=== PATIENT | female | born 1950 | race African-American/Black ===

== ENCOUNTER 2016-05-19 09:43 | Emergency (ER) | payer MEDICARE, MEDICAID ==
[~2016-05-19] VITALS: Ht 170.2 cm; Wt 93.0 kg
[~2016-05-19 09:43] MED LIST: AMLODIPINE BESYL5 MG ORAL; ANTI-ITCH28 GM TOPIC; AZITHROMYCIN250 MG ORAL; BENADRYL25 M3 PO; COSOPT1 DROP BOTH EYES; FLONASE1 SPRAYS; HYDROCHLOROTHIA25 MG ORAL; IBUPROFEN200 MG ORAL; IBUPROFEN600 MG ORAL; IBUPROFEN800 MG PO; KEFLEX500 MG ORAL; LISINOPRIL20 MG ORAL; LUMIGAN2.5 ML BOTH EYES; MACROBID100 MG ORAL; NITROFURANTOIN100 M2 ORAL; NORVASC5 MG PO; OMNIPRED10 ML OP; PHENAZOPYRIDIN200 MG ORAL; PROAIR HFA8.5 GM INH; SALINE NASAL SP45 ML NS; TRAMADOL HCL50 MG ORAL; TRUSOPT10 ML BOTH EYES; TYLENOL/CODEI12.5 ML PO; TYLENOL325 MG ORAL; VICODIN 5-5001 EACH PO; ZESTRIL20 MG PO
[2016-05-19 10:09] VITALS: BP 143/73
[2016-05-19] MEDS ORDERED: TRAMADOL HCL50 MG ORAL (10:58)
[2016-05-19] MEDS ORDERED: TYLENOL EXTRA500 MG ORAL (10:58)
[2016-05-19 11:16] VITALS: BP 140/76
[2016-05-19 11:17] VITALS: BP 140/76
--- NOTE | 2016-05-19 11:42 | Emergency Room Report ---
History of Present Illness General Chief Complaint: Pain Source: Patient Present Illness HPI 65-year-old female presents ED complaining of right knee pain x4 days. Denies any trauma. States she has been increasing her exercise recently and notices the pain at the end of her day. Pain is throbbing, 7/10, worse with walking and weightbearing. No other aggravating or relieving factors. Denies any other associated symptoms Allergies: Coded Allergies: No Known Allergies (Unverified , 04/06/12) Patient History Past Medical History: HTN Past Surgical History: none Pertinent Family History: none Social History: Denies: alcohol use, drug use, smoking Now: No Immunizations: UTD Reviewed Nursing Documentation: PMH: Agreed, PSxH: Agreed Nursing Documentation-PMH Past Medical History: No History, Except For Hx Hypertension: Yes Hx Neurological Problems: Yes - glaucoma Review of Systems All Other Systems: negative except mentioned in HPI Physical Exam Vital Signs Date Time Temp Pulse Resp B/P Pulse Ox O2 Delivery O2 Flow Rate FiO2 05/19/16 09:49 98.1 66 14 143/73 99 Room Air Sp02 EP Interpretation: reviewed, normal General Appearance: no apparent distress, alert, GCS 15, non-toxic Head: normocephalic, atraumatic Eyes: bilateral eye PERRL, bilateral eye normal inspection ENT: normal ENT inspection Neck: normal inspection Respiratory: normal inspection Cardiovascular #1: normal inspection Gastrointestinal: normal inspection Rectal: deferred Genitourinary: no CVA tenderness Musculoskeletal: tender - R knee. full ROM noted. no bruising/deformity Neurologic: alert, oriented x3, responsive, motor strength/tone normal, sensory intact, speech normal Psychiatric: normal inspection Skin: normal inspection Lymphatic: normal inspection Procedures Splinting Splinting : Consent: Verbal Pre-Made Type: MEGHAN wrap - R knee Pre-Proc Neuro Vasc Exam: normal Post-Proc Neuro Vasc Exam: normal Patient Tolerated: Well Complications: None Medical Decision Making Diagnostic Impression: Primary Impression: Knee pain Qualified Codes: M25.561 - Pain in right knee ER Course Hospital Course 65-year-old F presents to ED complaining of R knee pain Differential diagnoses include: Fracture, dislocation, sprain, contusion Clinical course Patient placed on stretcher. After initial history and physical, I ordered Xrays R knee Xrays read shows no acute fracture/dislocation. narrow joint spacing suggestive of DJD. Placed in meghan wrap Diagnosis - knee pain Stable and discharged to home with prescription for Tylenol/Tramadol Aapply ice , keep elevated. weight bear as tolerated. Followup with PMD. Return to ED if symptoms recur or worsen Other X-Ray Diagnostic Results Other X-Ray Diagnostic Results : X-Ray Ordered: R knee EP Interpretation: No Findings: no fractures, no dislocation, no soft tissue swelling Number of Views: 3 Last Vital Signs Date Time Temp Pulse Resp B/P Pulse Ox O2 Delivery O2 Flow Rate FiO2 05/19/16 11:17 98.1 78 16 140/76 100 Room Air Status: improved Disposition: HOME, SELF-CARE Condition: Stable Scripts Tramadol Hcl* (ULTRAM*) 50 Mg Tablet 50 MG ORAL Q6H Y for For Pain, #20 TAB 0 Refills Prov: DOLORES MATTHEWS M.D. 05/19/16 Acetaminophen* (TYLENOL EXTRA STRENGTH*) 500 Mg Tablet 500 MG ORAL Q8H Y for Prn Headache/Temp > 101, #30 TAB 0 Refills Prov: DOLORES MATTHEWS M.D. 05/19/16 Patient Instructions: Arthritis, Hriu-fm-Rtde DOLORES MATTHEWS M.D. May 19, 2016 11:42
--- NOTE | 2016-05-21 08:10 | Diagnostic Imaging Report ---
Indication: Right knee pain Technique: XRAY KNEE THREE VIEWS RIGHT Comparison: None Findings: There is no gross fracture or dislocation. There is degenerative spurring of the medial and patellofemoral compartments. There is patella morgan. There is suprapatellar fullness with a small joint effusion not excluded. There is osteopenia. Impression: No gross fracture or dislocation. Other findings as above.
== END 2016-05-19 11:19 | disposition home or self-care (01) ==
LOC: EMR 10:24
DX: M25.561 Pain in right knee (principal); I10 Essential (primary) hypertension; H40.9 Unspecified glaucoma
CPT/HCPCS: 29530; 99284

== ENCOUNTER 2016-12-25 17:20 | Emergency (ER) | payer MEDICARE, MEDICAID ==
[~2016-12-25] VITALS: Ht 170.2 cm; Wt 93.0 kg
[~2016-12-25 17:20] MED LIST changes: +TYLENOL EXTRA500 MG ORAL
[2016-12-25 18:50] LABS: APPEARANCE,URINE CLEAR; KETONES,URINE NEGATIVE (NEGATIVE); LEUKOCYTE ESTERASE ,URINE 1+ (NEGATIVE); NITRITE,URINE NEGATIVE (NEGATIVE); PH,URINE 7 (4.5-8.0); PROTEIN,URINE NEGATIVE (NEGATIVE); UROBILINOGEN,URINE NORMAL MG/DL (0.0-1.0)
[2016-12-25 18:58] LABS: AMORPHOUS SEDIMENT,UR FEW /LPF; BACTERIA,URINE FEW /HPF; MUCUS,URINE FEW /LPF (NONE/OCC); RBC,URINE 0-2 /HPF (0 - 2); SQUAMOUS EPITHELIAL CELL,UR FEW /LPF (NONE/OCC)
[2016-12-25 19:15] VITALS: BP 144/76
[2016-12-25] MEDS ORDERED: ACETAMINOPHEN-1 EAC1 ORAL (19:20)
[2016-12-25 20:00] VITALS: BP 138/70
--- NOTE | 2016-12-26 10:45 | Diagnostic Imaging Report ---
Indications:PAIN Technique: Three or 4 views of the left elbow Comparison: None Findings:No acute fracture. No dislocation. No joint effusion. Impression:Negative
--- NOTE | 2016-12-26 10:51 | Diagnostic Imaging Report ---
Indication: PAIN Technique: One view of the chest Comparison: 09/20/2015 Findings: The lungs and pleural spaces are clear. Heart size is normal. Aorta is tortuous and calcified. Upper mediastinum is unremarkable Impression: Negative
--- NOTE | 2016-12-28 13:20 | Emergency Room Report ---
History of Present Illness General Chief Complaint: Upper Extremity Injury Source: Patient Present Illness [facility] The patient is a 66-year-old female presenting for left elbow pain. She states that she was walking and tripped and fell onto the left elbow appears denies hitting head or loss of consciousness. This occurred last night. Pain is localized to the left elbow described as an 8/10 awake and is worse with touch. She denies any numbness or tingling. She also has mild left-sided rib pain. She has not taken any pain medications for this yet. She is also complaining of increased urinary frequency and urinary incontinence which has been increasing over the past month. She denies any dysuria, hematuria, or vaginal discharge. She denies any other symptoms including nausea, vomiting, fever, chills, dizziness, shortness of breath, chest pain, back pain Allergies: Coded Allergies: No Known Allergies (Unverified , 04/06/12) Patient History Past Medical History: see triage record Pertinent Family History: none Reviewed Nursing Documentation: PMH: Agreed, PSxH: Agreed Nursing Documentation-PMH Hx Hypertension: Yes Hx Neurological Problems: Yes - glaucoma Review of Systems All Other Systems: negative except mentioned in HPI Physical Exam Vital Signs Date Time Temp Pulse Resp B/P (MAP) Pulse Ox O2 Delivery O2 Flow Rate FiO2 12/25/16 17:22 98.4 78 16 144/76 99 Room Air Sp02 EP Interpretation: reviewed, normal General Appearance: no apparent distress, alert, GCS 15, non-toxic Head: normocephalic, atraumatic Eyes: bilateral eye normal inspection, bilateral eye PERRL ENT: hearing grossly normal, normal pharynx, no angioedema, normal voice Neck: full range of motion, supple/symm/no masses Respiratory: chest non-tender, lungs clear, normal breath sounds, speaking full sentences Gastrointestinal: normal bowel sounds, non tender, soft, non-distended, no guarding, no rebound Genitourinary: normal inspection, no CVA tenderness Musculoskeletal: back normal, gait/station normal, normal range of motion, swelling - L elbow, tender - L olecranon Neurologic: alert, oriented x3, responsive, motor strength/tone normal, sensory intact, speech normal Psychiatric: judgement/insight normal, memory normal, mood/affect normal, no suicidal/homicidal ideation Skin: normal color, no rash, warm/dry, well hydrated Lymphatic: no adenopathy Procedures Splinting Splinting : Consent: Verbal Location: L arm Pre-Made Type: sling Pre-Proc Neuro Vasc Exam: normal Post-Proc Neuro Vasc Exam: normal Patient Tolerated: Well Complications: None Medical Decision Making PA Attestation Dr. Slade is my supervising physician. Patient management was discussed with my supervising physician Diagnostic Impression: Primary Impression: Elbow fracture, left Qualified Codes: S42.402A - Unspecified fracture of lower end of left humerus , initial encounter for closed fracture Additional Impression: Urinary incontinence Qualified Codes: R32 - Unspecified urinary incontinence ER Course The patient is a 66-year-old female presenting for left elbow pain as well as urinary symptoms Ddx considered include but not limited to sprain/strain, fracture, contusion, bursitis, gout Differential diagnosis considered but not limited to: UTI, vaginitis, incontinence, among others PE: vitals WNL. NAD L elbow: FulL AROM. Edema noted at posterior elbow. TTP at olecranon. No skin changes. Lungs CTA bilat Abd is soft and non tender UA: no signs of infection Left rib series is unremarkable Left elbow x-rays show possible fracture due to some swelling and small opacity off of the olecranon. Left arm is placed in a sling. She will followup with her primary doctor for further evaluation and treatment. She is given prescription for pain medications. ER precautions given Labs Test 12/25/16 18:38 Urine Color Yellow Urine Appearance Clear Urine pH 7 (4.5-8.0) Urine Specific [place] 1.010 (1.005-1.035) Urine Protein Negative (NEGATIVE) Urine Glucose (UA) Negative (NEGATIVE) Urine Ketones Negative (NEGATIVE) Urine Occult Blood Negative (NEGATIVE) Urine Nitrite Negative (NEGATIVE) Urine Bilirubin Negative (NEGATIVE) Urine Urobilinogen Normal MG/DL (0.0-1.0) Urine Leukocyte Esterase 1+ (NEGATIVE) Urine RBC 0-2 /HPF (0 - 2) Urine WBC 2-4 /HPF (0 - 2) Urine Squamous Epithelial Cells Few /LPF (NONE/OCC) Urine Amorphous Sediment Few /LPF (NONE) Urine Bacteria Few /HPF (NONE) Urine Mucus Few /LPF (NONE/OCC) Lab Results Impression Unremarkable Other X-Ray Diagnostic Results Other X-Ray Diagnostic Results #1: X-Ray ordered: L elbow # of Views/Limited Vs Complete: 3 View Indication: Pain EP Interpretation: Yes Interpretation: no dislocation, other - some swelling is seen as well as small opacity off of the olecranon Impression: Other - possible fracture of olecranon Electronically Signed by: CHIOMA Phanibmikaela Text I have reviewed the xray with my supervising physician and interpretation is that there is likely a small fracture of the olecranon Other X-Ray Diagnostic Results #2: X-Ray ordered: L ribs # of Views/Limited Vs Complete: 4 View, Complete Indication: Pain EP Interpretation: Yes Interpretation: no dislocation, no soft tissue swelling, no fractures Impression: No acute disease Electronically Signed by: CHIOMA Phanibmikaela Text I have reviewed the xray with my supervising physician and interpretation is that there are no fractures, dislocations, pneumothorax, or soft tissue swelling. Last Vital Signs Date Time Temp Pulse Resp B/P (MAP) Pulse Ox O2 Delivery O2 Flow Rate FiO2 12/25/16 17:22 98.4 78 16 144/76 99 Room Air Status: improved Disposition: HOME, SELF-CARE Condition: Improved Scripts Acetaminophen With Codeine (T#3) (TYLENOL #3 TAB*) Y Tab 1 TAB ORAL Q6HR Y for For Pain, #10 TAB Prov: CELSO LESTER 12/25/16 Patient Instructions: Urinary Incontinence, Elbow Fracture, Simple Additional Instructions: I discussed my findings with the patient. All questions and concerns have been answered. Treatment and medication compliance have been addressed. I advised the patient that they need to follow up with primary doctor as soon as possible. Return to ED if symptoms worsen, new symptoms arise, or if needed for any reason. Patient verbalized understanding of discharge instructions. CELSO LESTER Dec 28, 2016 13:20
[2017-03-12] MEDS ORDERED: NORCO 5-325 TA1 EACH ORAL (11:30)
[2017-03-12] MEDS ORDERED: ROBAXIN-750750 MG PO (11:30)
== END 2016-12-25 20:00 | disposition home or self-care (01) ==
LOC: EMR 18:19
DX: S42.402A Unspecified fracture of lower end of left humerus, initial encounter for closed fracture (principal); W01.0XXA Fall on same level from slipping, tripping and stumbling without subsequent striking against object, initial encounter; Y93.9 Activity, unspecified; Y99.9 Unspecified external cause status; R32 Unspecified urinary incontinence; M25.522 Pain in left elbow; I10 Essential (primary) hypertension; H40.9 Unspecified glaucoma
CPT/HCPCS: 81003; 99284

== ENCOUNTER → 2017-03-12 | Emergency (ER) | payer MEDICARE, OTHER ==
[~2017-03-12] VITALS: Ht 170.2 cm; Wt 89.4 kg
[~2017-03-12] MED LIST changes: +ACETAMINOPHEN-1 EAC1 ORAL; +Methocarbamol 750mg tab ORAL ONE; +NORCO 5-325 TA1 EACH ORAL; +Norco 10mg/325mg tab ORAL ONE; +ROBAXIN-750750 MG PO
[2017-03-12 10:30] VITALS: BP 134/75
--- NOTE | 2017-03-12 11:54 | Diagnostic Imaging Report ---
Indications: hip pain Findings: Two views of the right hip were obtained. No acute fracture is demonstrated. Alignment of the hip is within normal limits. Soft tissues are unremarkable. Impression: Negative for acute injury.
--- NOTE | 2017-03-12 16:16 | Emergency Room Report ---
History of Present Illness General Chief Complaint: Pain Source: Patient Present Illness HPI 58-year-old female, presenting with right hip pain for 2 days, worse with walking, radiates down Buttocks. Has still been able to ambulate but with pain. Has not taken any pain medication. No numbness or tingling of extremities no urinary retention or incontinence no fever no chills Allergies: Coded Allergies: No Known Allergies (Unverified , 04/06/12) Patient History Past Medical History: see triage record Past Surgical History: none Pertinent Family History: none Reviewed Nursing Documentation: PMH: Agreed, PSxH: Agreed Nursing Documentation-PMH Hx Hypertension: Yes Hx Neurological Problems: Yes - glaucoma Review of Systems All Other Systems: negative except mentioned in HPI Physical Exam Vital Signs Date Time Temp Pulse Resp B/P (MAP) Pulse Ox O2 Delivery O2 Flow Rate FiO2 03/12/17 10:02 98.1 63 18 134/75 100 Room Air Sp02 EP Interpretation: reviewed, normal General Appearance: normal inspection, well appearing, no apparent distress, alert, GCS 15, non-toxic Head: normocephalic, atraumatic Eyes: bilateral eye normal inspection, bilateral eye PERRL, bilateral eye EOMI ENT: normal ENT inspection, normal pharynx, normal voice, moist mucus membranes Neck: normal inspection, full range of motion, supple Respiratory: normal inspection, lungs clear, normal breath sounds, no respiratory distress, no retraction, no wheezing, speaking full sentences, chest symmetrical Cardiovascular #1: normal inspection, regular rate, rhythm, no edema, normal capillary refill Cardiovascular #2: 2+ radial (R), 2+ radial (L) Gastrointestinal: normal inspection, non tender, soft, non-distended, no guarding Musculoskeletal: other - Sided lower lumbar paraspinal tenderness, no midline tenderness, full range of motion no exudates, able to ambulate Neurologic: normal inspection, alert, oriented x3, responsive, motor strength/ tone normal, sensory intact, normal gait, speech normal Psychiatric: normal inspection, judgement/insight normal, memory normal Skin: normal inspection, normal color, no rash, warm/dry, well hydrated, normal turgor Medical Decision Making Diagnostic Impression: Primary Impression: Musculoskeletal back pain ER Course 58-year-old female presents with back pain for 2 days DDX: Likely musculoskeletal back pain vs. muscular strain vs. sciatica Lumbar fracture is unlikely given patients age, no midline tenderness, no history of trauma, and that patient is ambulatory. Therefore, at this time no imaging is indicated Serious diagnoses such as cord compression, epidural abscess is unlikely in this patient given the clinical scenario and abscess of neurological symptoms or findings. Patient appears nontoxic. Plan: Robaxin X-ray ER course: Patient has remained nontoxic appearing and ambulatory in the ED. Pain improved w/ medications Right hip x-ray is unremarkable Disposition: Patient will be discharged to home with prescription of motrin and robaxin. Patient cautioned of the effects of robaxin including possible impairment of physical or mental abilities. Patient was instructed to refrain from operating machinery or driving. Patient is also cautioned on the GI effects of motrin and to take sparingly. Patient verbalized understanding. Strict precautions discussed with patient on when to emergently return to the ED which includes severe/worsening back pain, leg weakness/numbness, urinary retention/incontinence, fever or chills, which may indicate severe illness. Patient is to follow up with their PMD within 5 days. Patient agrees with plan. Please note that this Emergency Department Report was dictated using [employer] representative technology software, occasionally this can lead to erroneous entry secondary to interpretation by the dictation equipment. Xray: Right hip 3 view Complete Indication: Pain EP Interpretation: Yes Interpretation: No dislocation, no soft tissue swelling, no fractures Impression: No acute disease Electronically signed by Denise Mcelroy MD Last Vital Signs Date Time Temp Pulse Resp B/P (MAP) Pulse Ox O2 Delivery O2 Flow Rate FiO2 03/12/17 10:30 98.1 18 134/75 100 Room Air 03/12/17 10:02 63 Disposition: HOME, SELF-CARE Condition: Improved Scripts Methocarbamol* (ROBAXIN-750*) 750 Mg Tablet 750 MG PO TID, #21 TAB 0 Refills Prov: Deinse Mcelroy M.D. 03/12/17 Hydrocodone Bit/Acetaminophen 5-325* (NORCO 5-325*) 1 Each Tablet 1 TAB ORAL Q6H Y for For Pain, #10 TAB 0 Refills Prov: Denise Mcelroy M.D. 03/12/17 Patient Instructions: Back Pain, Adult, [id number] Denise Mcelroy M.D. Mar 12, 2017 16:16
== END | disposition home or self-care (01) ==
LOC: EMR 10:51
DX: M79.1 Myalgia (principal); M54.9 Dorsalgia, unspecified; M25.551 Pain in right hip; I10 Essential (primary) hypertension; H40.9 Unspecified glaucoma
CPT/HCPCS: 99284

== ENCOUNTER 2017-06-30 09:12 | Emergency (ER) | payer MEDICARE, OTHER ==
[~2017-06-30] VITALS: Ht 167.6 cm; Wt 86.2 kg
[~2017-06-30 09:12] MED LIST changes: -Methocarbamol 750mg tab ORAL ONE; -Norco 10mg/325mg tab ORAL ONE
--- NOTE | 2017-06-30 09:36 | Emergency Room Report ---
History of Present Illness General Chief Complaint: Lower Back Pain or Injury Source: Patient Present Illness HPI The patient presents with lower back pain and dysuria. She denies any fevers or chills. She's had this once before when she had a urinary tract infection. She denies any trauma. She's not taking medication at home. She states the pain is almost insignificant at the moment. At times the pain is 5/10 and aching in her lower back without radiation. No numbness, incontinence, oncologic problems, blood thinners, fevers. The patient was seen here in the past for right hip pain. X-rays were negative. She denies having any x-rays of her lower back. She was seen 10/2015 for lumbar strain - but this involved R side of her back. She denies fevers, chills, nausea, vomiting, diarrhea, cough, chest pain. She has decreased vision in her left eye that's chronic. Allergies: Coded Allergies: No Known Allergies (Unverified , 04/06/12) Patient History Past Medical History: see triage record Social History: Denies: smoking, alcohol use Social History Narrative she came from [facility] - Born in [facility] here with "mother" Reviewed Nursing Documentation: PMH: Agreed; PSxH: Agreed Nursing Documentation-PMH Hx Hypertension: Yes Hx Neurological Problems: Yes - glaucoma Review of Systems All Other Systems: negative except mentioned in HPI Physical Exam Vital Signs Date Time Temp Pulse Resp B/P (MAP) Pulse Ox O2 Delivery O2 Flow Rate FiO2 06/30/17 09:17 98.0 71 16 162/79 99 Room Air 98.1 Sp02 EP Interpretation: reviewed, normal General Appearance: well appearing, no apparent distress Head: normocephalic, atraumatic Eyes: left eye other - Corneal opacity ENT: hearing grossly normal, normal voice Neck: full range of motion, supple Respiratory: no respiratory distress, speaking full sentences Gastrointestinal: normal inspection, normal bowel sounds Genitourinary: no CVA tenderness Musculoskeletal: digits/nails normal, gait/station normal, normal range of motion, no calf tenderness, other - lumbar tenderness - not point tenderness - ROM good but with some discomfort - SLR negative bilat Neurologic: alert, normal gait, grossly normal Psychiatric: mood/affect normal Reflexes: 2+ knee (R), 2+ knee (L); 1+ ankle (R), 1+ ankle (L) Skin: no rash Medical Decision Making Diagnostic Impression: Primary Impression: Low back pain Qualified Codes: M54.5 - Low back pain Additional Impression: Osteoarthritis Qualified Codes: M47.817 - Spondylosis without myelopathy or radiculopathy, lumbosacral region ER Course Patient presents with back pain and dysuria. Differential includes pyelonephritis, UTI, back strain amongst others. Exam is most consistent with a UTI. Urinalysis is indicated. The patient will be treated with Tylenol (she is reluctant to take anything stronger). UA negative. This led to further evaluation with labs and lumbar spine x-rays. Labs unremarkable. Xrays with DJD spine with minimal spondylolisthesis. Improved with treatment. Patient stable for outpatient observation and treatment. Laboratory Tests Test 06/30/17 09:25 06/30/17 11:37 Urine Color Pale yellow Urine Appearance Clear Urine pH 8 (4.5-8.0) Urine Specific [place] 1.010 (1.005-1.035) Urine Protein Negative (NEGATIVE) Urine Glucose (UA) Negative (NEGATIVE) Urine Ketones Negative (NEGATIVE) Urine Occult Blood Negative (NEGATIVE) Urine Nitrite Negative (NEGATIVE) Urine Bilirubin Negative (NEGATIVE) Urine Urobilinogen Normal MG/DL (0.0-1.0) Urine Leukocyte Esterase Negative (NEGATIVE) Urine HCG, Qualitative Negative (NEGATIVE) White Blood Count 5.8 K/UL (4.8-10.8) Red Blood Count 4.59 M/UL (4.20-5.40) Hemoglobin 14.1 G/DL (12.0-16.0) Hematocrit 41.3 % (37.0-47.0) Mean Corpuscular Volume 90 FL (80-99) Mean Corpuscular Hemoglobin 30.8 PG (27.0-31.0) Mean Corpuscular Hemoglobin Concent 34.1 G/DL (32.0-36.0) Red Cell Distribution Width 11.9 % (11.6-14.8) Platelet Count 316 K/UL (150-450) Mean Platelet Volume 7.5 FL (6.5-10.1) Neutrophils (%) (Auto) 38.6 % (45.0-75.0) L Lymphocytes (%) (Auto) 50.1 % (20.0-45.0) H Monocytes (%) (Auto) 6.7 % (1.0-10.0) Eosinophils (%) (Auto) 3.3 % (0.0-3.0) H Basophils (%) (Auto) 1.4 % (0.0-2.0) Prothrombin Time 10.2 SEC (9.30-11.50) Prothrombin Time INR 1.0 (0.9-1.1) PTT 28 SEC (23-33) Sodium Level 139 MMOL/L (136-145) Potassium Level 4.0 MMOL/L (3.5-5.1) Chloride Level 102 MMOL/L (98-107) Carbon Dioxide Level 29 MMOL/L (21-32) Anion Gap 8 mmol/L (5-15) Blood Urea Nitrogen 7 mg/dL (7-18) Creatinine 0.5 MG/DL (0.55-1.30) L Estimate Glomerular Filtration Rate > 60 mL/min (>60) Glucose Level 85 MG/DL (74-106) Calcium Level 9.3 MG/DL (8.5-10.1) Total Bilirubin 0.6 MG/DL (0.2-1.0) Aspartate Amino Transferase (AST) 14 U/L (15-37) L Alanine Aminotransferase (ALT) 15 U/L (12-78) Alkaline Phosphatase 85 U/L (46-116) C-Reactive Protein, Quantitative < 0.4 mg/dL (0.00-0.90) Total Protein 8.0 G/DL (6.4-8.2) Albumin 3.8 G/DL (3.4-5.0) Globulin 4.2 g/dL Albumin/Globulin Ratio 0.9 (1.0-2.7) L Other X-Ray Diagnostic Results Other X-Ray Diagnostic Results : X-Ray ordered: spine # of Views/Limited Vs Complete: 3 View Indication: Pain Interpretation: no soft tissue swelling, no fractures, other - DJD, inflammation Impression: Other Electronically Signed by: Jurgen Hyde MD Last Vital Signs Date Time Temp Pulse Resp B/P (MAP) Pulse Ox O2 Delivery O2 Flow Rate FiO2 06/30/17 13:10 71 16 155/70 99 Room Air 06/30/17 13:10 97.9 208.2 Status: improved Disposition: HOME, SELF-CARE Condition: Improved Scripts Ibuprofen* (MOTRIN*) 600 Mg Tablet 600 MG ORAL Q6H PRN for For Pain, #20 TAB Prov: Jurgen Hyde M.D. 06/30/17 Acetaminophen (Tylenol) 325 Mg Tablet 650 MG ORAL Q6H PRN for Prn Pain/Headache/Temp > 101, #30 TAB 0 Refills Prov: Jurgen Hyde M.D. 06/30/17 Jurgen Hyde M.D. Jun 30, 2017 09:36
[2017-06-30 09:41] VITALS: BP 160/77
[2017-06-30 09:45] LABS: APPEARANCE,URINE CLEAR; BILIRUBIN, URINE NEGATIVE (NEGATIVE); COLOR,URINE PALE YELLOW; GLUCOSE, URINE (UA) NEGATIVE (NEGATIVE); KETONES,URINE NEGATIVE (NEGATIVE); LEUKOCYTE ESTERASE ,URINE NEGATIVE (NEGATIVE); NITRITE,URINE NEGATIVE (NEGATIVE); PH,URINE 8 (4.5-8.0); PROTEIN,URINE NEGATIVE (NEGATIVE); UROBILINOGEN,URINE NORMAL MG/DL (0.0-1.0)
[2017-06-30 12:01] LABS: BASOPHILS % (AUTO) 1.4 % (0.0-2.0); EOSINOPHILS % (AUTO) 3.3 % (0.0-3.0); HEMATOCRIT 41.3 % (37.0-47.0); HEMOGLOBIN 14.1 G/DL (12.0-16.0); LYMPHOCYTES % (AUTO) 50.1 % (20.0-45.0); MEAN CORPUSCULAR VOLUME 90 FL (80-99); MONOCYTES % (AUTO) 6.7 % (1.0-10.0); NEUTROPHILS % (AUTO) 38.6 % (45.0-75.0); PLATELET COUNT 316 K/UL (150-450); RED BLOOD COUNT 4.59 M/UL (4.20-5.40); RED CELL DISTRIBUTION WIDTH 11.9 % (11.6-14.8); WHITE BLOOD COUNT 5.8 K/UL (4.8-10.8)
[2017-06-30 12:02] LABS: ANION GAP 8 mmol/L (5-15); BLOOD UREA NITROGEN 7 mg/dL (7-18); CALCIUM 9.3 MG/DL (8.5-10.1); CARBON DIOXIDE 29 MMOL/L (21-32); CHLORIDE 102 MMOL/L (98-107); CREATININE 0.5 MG/DL (0.55-1.30); SODIUM 139 MMOL/L (136-145)
[2017-06-30 12:06] LABS: ALANINE AMINOTRANSFERASE 15 U/L (12-78); ALBUMIN 3.8 G/DL (3.4-5.0); ALBUMIN/GLOBULIN RATIO 0.9 (1.0-2.7); ALKALINE PHOSPHATASE 85 U/L (46-116); ASPARTATE AMINO TRANSFERASE 14 U/L (15-37); BILIRUBIN,TOTAL 0.6 MG/DL (0.2-1.0)
[2017-06-30] MEDS ORDERED: TYLENOL325 MG ORAL (13:04)
[2017-06-30] MEDS ORDERED: IBUPROFEN600 MG ORAL (13:04)
[2017-06-30 13:10] VITALS: BP_SYST 155; BP_SYST 160; BP_DIAS 70; BP_DIAS 77
--- NOTE | 2017-07-01 08:23 | Diagnostic Imaging Report ---
Indication: Pain Technique: 3 views of the lumbar spine Comparison: None Findings: Exam is limited by patient body habitus. No acute fractures. No dislocations. Vertebral body heights are preserved. Disc spaces are preserved. 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 There are degenerative changes of the lower lumbar facets. Impression: No acute process
== END 2017-06-30 13:10 | disposition home or self-care (01) ==
LOC: EMR 10:03
DX: M54.5 Low back pain (principal); M47.817 Spondylosis without myelopathy or radiculopathy, lumbosacral region; I10 Essential (primary) hypertension; H40.9 Unspecified glaucoma
CPT/HCPCS: 36415; 72020; 80053; 81003; 81025; 85025; 85610; 85730; 86140; 99284

== ENCOUNTER 2017-08-14 11:42 | Emergency (ER) | payer MEDICARE, OTHER ==
[~2017-08-14] VITALS: Ht 162.6 cm; Wt 90.3 kg
[2017-08-14 11:48] VITALS: BP 126/69
--- NOTE | 2017-08-14 14:10 | Diagnostic Imaging Report ---
Indication: Pain Findings: 3 views of the right shoulder were obtained. No acute fractures, malalignment, erosions or periostitis are identified. Soft tissues are unremarkable. Impression: Negative for acute injury
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
[2017-08-14] MEDS ORDERED: IBUPROFEN600 MG ORAL (14:13)
[2017-08-14] MEDS ORDERED: TRAMADOL HCL50 MG ORAL (14:13)
[2017-08-14 14:31] VITALS: BP 142/84
== END 2017-08-14 14:31 | disposition home or self-care (01) ==
LOC: EMR 12:44
DX: S40.011A Contusion of right shoulder, initial encounter (principal); S13.4XXA Sprain of ligaments of cervical spine, initial encounter; S39.012A Strain of muscle, fascia and tendon of lower back, initial encounter; V43.62XA Car passenger injured in collision with other type car in traffic accident, initial encounter; Y92.481 Parking lot as the place of occurrence of the external cause; I10 Essential (primary) hypertension; H40.9 Unspecified glaucoma
CPT/HCPCS: 99284

== ENCOUNTER 2017-10-07 16:23 | Emergency (ER) | payer MEDICARE ==
[~2017-10-07] VITALS: Ht 170.2 cm; Wt 86.2 kg
[2017-10-07 16:38] VITALS: BP 158/74
--- NOTE | 2017-10-07 16:44 | Emergency Room Report ---
History of Present Illness General Chief Complaint: Female Urogenital Problems Source: Patient, Medical Record Present Illness HPI 66-year-old female presents to the emergency department complaining of 10 out of 10 in severity dysuria with urinary frequency times one day. Patient denies fevers, chills, nausea, vomiting, hematuria, abdominal pain or tenderness. Patient also denies low back pain. Allergies: Coded Allergies: No Known Allergies (Unverified , 04/06/12) Patient History Past Medical History: see triage record Past Surgical History: none Pertinent Family History: none Now: No Immunizations: UTD Reviewed Nursing Documentation: PMH: Agreed; PSxH: Agreed Nursing Documentation-PMH Past Medical History: No History, Except For Hx Hypertension: Yes Hx Neurological Problems: Yes - glaucoma Review of Systems All Other Systems: negative except mentioned in HPI Physical Exam Vital Signs Date Time Temp Pulse Resp B/P (MAP) Pulse Ox O2 Delivery O2 Flow Rate FiO2 10/07/17 16:28 98.3 82 18 163/79 100 Room Air 98.2 Sp02 EP Interpretation: reviewed, normal General Appearance: no apparent distress, alert, GCS 15, non-toxic Head: normocephalic, atraumatic ENT: hearing grossly normal, normal voice Neck: full range of motion Respiratory: lungs clear, normal breath sounds, speaking full sentences Cardiovascular #1: regular rate, rhythm, no edema, systolic murmur Gastrointestinal: normal bowel sounds, non tender, soft, non-distended, no guarding Rectal: deferred Genitourinary: normal inspection, no CVA tenderness Musculoskeletal: back normal, gait/station normal, normal range of motion, non- tender Neurologic: alert, oriented x3, responsive, motor strength/tone normal, sensory intact, normal gait, speech normal, grossly normal Psychiatric: judgement/insight normal Skin: normal color, no rash, warm/dry, well hydrated Medical Decision Making PA Attestation Dr. Arango is my supervising physician whom pt. management has been discussed with. Diagnostic Impression: Primary Impression: UTI (urinary tract infection) Qualified Codes: N30.01 - Acute cystitis with hematuria Additional Impression: Dysuria ER Course 66-year-old female presents to the emergency department complaining of 10 out of 10 in severity dysuria with urinary frequency times one day. Patient denies fevers, chills, nausea, vomiting, hematuria, abdominal pain or tenderness. Patient also denies low back pain. Ddx considered but are not limited to UTi , Pyelo, STI, Stone, Cystitis Vital signs: are WNL, pt. is afebrile H&PE are most consistent with UTI ORDERS: - UA labs are attached: elevated leukocytes with hematuria will tx as UTI ED INTERVENTIONS: -Pyridium PO d/w pt. PCP follow up in 3-5 days or return to ED with worsening or new symptoms. DISCHARGE: At this time pt. is stable for d/c to home. Will provide printed patient care instructions, and any necessary prescriptions. Care plan and follow up instructions have been discussed with the patient prior to discharge. Labs Test 10/07/17 11:41 Urine Color Pale yellow Urine Appearance Clear Urine pH 7 (4.5-8.0) Urine Specific Joice 1.005 (1.005-1.035) Urine Protein 2+ (NEGATIVE) Urine Glucose (UA) Negative (NEGATIVE) Urine Ketones Negative (NEGATIVE) Urine Occult Blood 5+ (NEGATIVE) Urine Nitrite Negative (NEGATIVE) Urine Bilirubin Negative (NEGATIVE) Urine Urobilinogen Normal MG/DL (0.0-1.0) Urine Leukocyte Esterase 3+ (NEGATIVE) Urine RBC 5-10 /HPF (0 - 2) Urine WBC 2-4 /HPF (0 - 2) Urine Squamous Epithelial Cells Few /LPF (NONE/OCC) Urine Bacteria Few /HPF (NONE) Last Vital Signs Date Time Temp Pulse Resp B/P (MAP) Pulse Ox O2 Delivery O2 Flow Rate FiO2 10/07/17 16:28 98.3 82 18 163/79 100 Room Air 98.2 Disposition: HOME, SELF-CARE Condition: Stable Scripts Nitrofurantoin Monohyd/M-Cryst* (MACROBID 100 MG*) 100 Mg Capsule 100 MG ORAL EVERY 12 HOURS for 7 Days, #14 CAP Prov: Sofi Juarez 10/07/17 Phenazopyridine Hcl* (PYRIDIUM*) 200 Mg Tablet 200 MG ORAL THREE TIMES A DAY for 3 Days, #9 TAB 0 Refills Prov: Sofi Juarez 10/07/17 Patient Instructions: Urinary Tract Infection Additional Instructions: Take medications as directed. Follow up with a Primary Care Provider in 3-5 days, even if your symptoms have resolved. --Please review list of primary care clinics, if you do not already have a primary care provider Return sooner to ED if new symptoms occur, or current symptoms become worse. Do not drink alcohol, drive, or operate heavy machinery while taking [ ] as this may cause drowsiness. - Please note that this Emergency Department Report was dictated using [employer] throw[employer] technology software, occasionally this can lead to erroneous entry secondary to interpretation by the dictation equipment. Sofi Juarez Oct 07, 2017 16:44
[2017-10-07] MEDS ORDERED: Phenazopyridine 200mg tab ORAL ONE (16:45)
[2017-10-07 17:45] LABS: APPEARANCE,URINE CLEAR; BILIRUBIN, URINE NEGATIVE (NEGATIVE); COLOR,URINE PALE YELLOW; GLUCOSE, URINE (UA) NEGATIVE (NEGATIVE); KETONES,URINE NEGATIVE (NEGATIVE); LEUKOCYTE ESTERASE ,URINE 3+ (NEGATIVE); NITRITE,URINE NEGATIVE (NEGATIVE); PH,URINE 7 (4.5-8.0); PROTEIN,URINE 2+ (NEGATIVE); UROBILINOGEN,URINE NORMAL MG/DL (0.0-1.0)
[2017-10-07] MEDS ORDERED: NITROFURANTOIN100 M2 ORAL (17:55)
[2017-10-07] MEDS ORDERED: PHENAZOPYRIDIN200 MG ORAL (17:55)
[2017-10-07 18:01] VITALS: BP 154/74
== END 2017-10-07 18:09 | disposition home or self-care (01) ==
LOC: EMR 16:51
DX: N39.0 Urinary tract infection, site not specified (principal); I10 Essential (primary) hypertension; H40.9 Unspecified glaucoma
CPT/HCPCS: 81003; 99283

== ENCOUNTER 2019-02-23 16:56 | Inpatient (IN) | payer MEDICARE ==
[~2019-02-23] VITALS: Ht 162.6 cm; Wt 92.5 kg
[2019-02-23 17:15] VITALS: BP 158/88
[2019-02-23] MEDS ORDERED: Methocarbamol 750mg tab ORAL ONE (18:00)
--- NOTE | 2019-02-23 18:09 | Emergency Room Report ---
History of Present Illness General Chief Complaint: General Complaint Source: Patient Present Illness HPI Disclaimer: Please note that this report is being documented using [employer] technology. This can lead to erroneous entry secondary to incorrect interpretation by the dictating instrument. HPI: 68-year-old female with history of hypertension presents for evaluation of palpitations and back pain. The patient has chronic low back pain and was complaining of worsening pain today while she was cleaning her house. She states that this was rather vigorous activity for her and also during this time she felt her heart rate was going too fast. Sensation lasted approximately 10 minutes. She does not describe it exactly as pain just that it felt abnormal. She is now chest pain-free, no palpitations, no other changes in her health aside from worsening right-sided back pain. No pain radiating down her leg. She has never had a history of heart disease. No injury to the lower back. She did say that yesterday she felt her heart was skipping beats sometimes but again denied any pain. Does not smoke cigarettes. No history of heart disease. PMH: Hypertension PSH: Denies Allergies: Denies Social Hx: Denies alcohol, tobacco or drug use Allergies: Coded Allergies: No Known Allergies (Unverified , 04/06/12) Patient History Now: No Nursing Documentation-PMH Past Medical History: No History, Except For Hx Hypertension: Yes Hx Neurological Problems: Yes - glaucoma Review of Systems All Other Systems: negative except mentioned in HPI Physical Exam Vital Signs Date Time Temp Pulse Resp B/P (MAP) Pulse Ox O2 Delivery O2 Flow Rate FiO2 02/23/19 17:06 98.4 94 17 158/88 (111) 100 Room Air General: Awake and alert, no acute distress HEENT: NC/AT. EOMI. Neck: Supple, trachea midline Chest Wall: No tenderness, no deformity Cardiovascular: RRR. Soft systolic ejection murmur at the left sternal border Resp: Normal work of breathing. No cough, wheezing or crackles appreciated Abdomen: Abdomen is soft, nondistended. Nontender Skin: Intact. No abrasions, laceration or rash over the exposed skin MSK: Normal tone and bulk. Moving all extremities. No obvious deformity. Neuro: Awake and alert. Mentating appropriately. Back/Spine: No midline tenderness in the cervical, thoracic or lumbosacral spine. There is tenderness over the right paraspinal region in the lumbar spine but no midline tenderness Medical Decision Making Diagnostic Impression: Primary Impression: Elevated troponin Additional Impression: Palpitations ER Course 68-year-old female presents for evaluation of palpitations and back pain. Differential includes was not limited to anxiety, dehydration, overexertion, arrhythmia, ACS, lumbosacral strain. There was no injury reported. She is well -appearing now with stable vital signs. Will obtain EKG, chest x-ray, labs to rule out organic causes of palpitations. Do not see indication for acute imaging of the spine at this time as there is no midline tenderness and her symptoms are more consistent with a strain. Laboratory Tests Test 02/23/19 18:29 02/23/19 19:19 White Blood Count 9.5 K/UL (4.8-10.8) Red Blood Count 4.79 M/UL (4.20-5.40) Hemoglobin 14.2 G/DL (12.0-16.0) Hematocrit 41.0 % (37.0-47.0) Mean Corpuscular Volume 86 FL (80-99) Mean Corpuscular Hemoglobin 29.7 PG (27.0-31.0) Mean Corpuscular Hemoglobin Concent 34.7 G/DL (32.0-36.0) Red Cell Distribution Width 10.6 % (11.6-14.8) L Platelet Count 275 K/UL (150-450) Mean Platelet Volume 6.8 FL (6.5-10.1) Neutrophils (%) (Auto) 55.6 % (45.0-75.0) Lymphocytes (%) (Auto) 33.4 % (20.0-45.0) Monocytes (%) (Auto) 7.4 % (1.0-10.0) Eosinophils (%) (Auto) 1.5 % (0.0-3.0) Basophils (%) (Auto) 2.0 % (0.0-2.0) Sodium Level 139 MMOL/L (136-145) Potassium Level 4.2 MMOL/L (3.5-5.1) Chloride Level 104 MMOL/L (98-107) Carbon Dioxide Level 24 MMOL/L (21-32) Anion Gap 11 mmol/L (5-15) Blood Urea Nitrogen 10 mg/dL (7-18) Creatinine 0.6 MG/DL (0.55-1.30) Estimate Glomerular Filtration Rate > 60 mL/min (>60) Glucose Level 99 MG/DL (74-106) Calcium Level 9.4 MG/DL (8.5-10.1) Total Bilirubin 0.4 MG/DL (0.2-1.0) Aspartate Amino Transferase (AST) 17 U/L (15-37) Alanine Aminotransferase (ALT) 11 U/L (12-78) L Alkaline Phosphatase 83 U/L (46-116) Troponin I 0.077 ng/mL (0.000-0.056) Total Protein 7.9 G/DL (6.4-8.2) Albumin 3.5 G/DL (3.4-5.0) Globulin 4.4 g/dL Albumin/Globulin Ratio 0.8 (1.0-2.7) L EKG Diagnostic Results EKG Time: 18:08 Rate: normal Rhythm: NSR ST Segments: no acute changes Other Impression Sinus rhythm, slight left axis deviation, normal intervals, no ST segment changes. ASA given to the pt in ED: Yes Rhythm Strip Diag. Results Rhythm Strip Time: 18:08 EP Interpretation: yes Rate: 90s Rhythm: NSR, no PVC's, no ectopy Chest X-Ray Diagnostic Results Chest X-Ray Diagnostic Results : Chest X-Ray Ordered: Yes # of Views/Limited/Complete: 1 View Indication: Chest Pain EP Interpretation: Yes Interpretation: no consolidation, no effusion, no pneumothorax Impression: No acute disease Electronically Signed by: Electronically signed by Dr. Otf Stewart Reevaluation Time: 20:19 Last Vital Signs Date Time Temp Pulse Resp B/P (MAP) Pulse Ox O2 Delivery O2 Flow Rate FiO2 02/23/19 17:06 98.4 94 17 158/88 (111) 100 Room Air Reevaluation Impression EKG unremarkable aside from some left axis deviation. There is a Q wave in lead I and aVL of undetermined significance. The patient remains chest pain- free however troponin returned elevated at 0.077. Aspirin given. May have been demand ischemia from an arrhythmia earlier or ACS. The patient will be admitted for further evaluation of elevated troponin and palpitations. Disposition: ADMITTED INPATIENT Condition: Serious Otf Stewart MD Feb 23, 2019 18:09
[2019-02-23 18:51] LABS: EOSINOPHILS % (AUTO) 1.5 % (0.0-3.0); HEMOGLOBIN 14.2 G/DL (12.0-16.0); LYMPHOCYTES % (AUTO) 33.4 % (20.0-45.0); MEAN CORPUSCULAR VOLUME 86 FL (80-99); MONOCYTES % (AUTO) 7.4 % (1.0-10.0); NEUTROPHILS % (AUTO) 55.6 % (45.0-75.0); PLATELET COUNT 275 K/UL (150-450); RED BLOOD COUNT 4.79 M/UL (4.20-5.40); RED CELL DISTRIBUTION WIDTH 10.6 % (11.6-14.8); WHITE BLOOD COUNT 9.5 K/UL (4.8-10.8)
[2019-02-23 19:06] VITALS: BP 149/77
[2019-02-23 20:01] LABS: ANION GAP 11 mmol/L (5-15); BLOOD UREA NITROGEN 10 mg/dL (7-18); CALCIUM 9.4 MG/DL (8.5-10.1); CARBON DIOXIDE 24 MMOL/L (21-32); CHLORIDE 104 MMOL/L (98-107); CREATININE 0.6 MG/DL (0.55-1.30); POTASSIUM 4.2 MMOL/L (3.5-5.1); SODIUM 139 MMOL/L (136-145)
[2019-02-23 20:05] LABS: ALANINE AMINOTRANSFERASE 11 U/L (12-78); ALBUMIN 3.5 G/DL (3.4-5.0); ALBUMIN/GLOBULIN RATIO 0.8 (1.0-2.7); ALKALINE PHOSPHATASE 83 U/L (46-116); ASPARTATE AMINO TRANSFERASE 17 U/L (15-37); BILIRUBIN,TOTAL 0.4 MG/DL (0.2-1.0)
[2019-02-23] MEDS ORDERED: Aspirin Baby 81mg ORAL ONE (20:30)
[2019-02-23] MEDS ORDERED: Methocarbamol 500mg tab ORAL PRN (22:30)
[2019-02-23] MEDS ORDERED: Nitroglycerin Subl 0.4mg tab SL PRN (22:30)
[2019-02-23 22:40] VITALS: BP 140/82
[2019-02-23] MEDS: Enoxaparin 40mg Inj SUBQ SCH (23:30)
[2019-02-24] VITALS: BP 148/81
--- NOTE | 2019-02-24 | History and Physical Report ---
DATE OF ADMISSION: 02/23/2019 REASON FOR ADMISSION: 1. Palpitations. 2. Chest pain. HISTORY OF PRESENT ILLNESS: The patient is a 68-year-old female accompanied by her son and daughter currently at bedside in the emergency room. The patient does have known history of glaucoma and hypertension. She presents for evaluation of two days of palpitations. She has chronic low back pain. She states during activity of cleaning the house, she started feeling palpitations and mild chest pain. It has been going on for two days now. The patient denies any previous occurrences involving heart palpitations. She feels as if her heart was skipping beats. No nausea, vomiting, diarrhea. PAST MEDICAL HISTORY: 1. Hypertension. 2. Glaucoma. ALLERGIES: No known drug allergies PAST SURGICAL HISTORY: None. SOCIAL HISTORY: No tobacco, alcohol, illicit drug use. REVIEW OF SYSTEMS: NEUROLOGIC: The patient denies headache, change in vision, syncope, or presyncopal episodes. CARDIOVASCULAR: She was having chest pain and palpitations. PULMONARY: No difficulty breathing, productive cough, sputum. GASTROINTESTINAL/GENITOURINARY: No change in urinary or bowel habits. No nausea, vomiting, or diarrhea. ENDOCRINOLOGY: No night sweats, fevers, or chills. MUSCULOSKELETAL: The patient feeling weak, tired, fatigue. LABORATORY DATA: Labs dated February 23, 2019 sodium 139, potassium 4.2, creatinine 0.6. Troponin 0.077. Hemoglobin 14.2, white cell count 9.5, and platelet count 275. PHYSICAL EXAMINATION: VITAL SIGNS: Blood pressure 149/77, 99% oxygen saturation on room air, respiratory rate 19, pulse 71, temperature 98.6. GENERAL: The patient awake, alert, not in distress. HEENT: Extraocular muscles intact. No lymphadenopathy noted. CARDIOVASCULAR: S1 and S2. No rubs or gallops. PULMONARY: Clear to auscultation bilaterally. No rales, rhonchi, wheezes. ABDOMEN: Nondistended and nontender. EXTREMITIES: No edema noted. ASSESSMENT AND PLAN: 1. Chest pain and palpitations. At this time, chest pain has resolved. Second troponin is pending. We will initiate aspirin and beta jeremiah. Cardiology, Dr. Alves has been consulted. 2. Hypertension. We will continue lisinopril, metoprolol. 3. DVT prophylaxis with Lovenox. 4. GI prophylaxis with famotidine. Usman Mosley MD DR: Nichelle JOB#: [id number] CC:
[2019-02-24] MEDS ORDERED: XALATAN2.5 ML BOTH EYES (01:40)
[2019-02-24 04:00] VITALS: BP 131/79
--- NOTE | 2019-02-24 07:29 | Nephrology Progress Note ---
Assessment/Plan Assessment/Plan: A/P 1. ACS/Chest pain/palpitations. chest pain has resolved. -aspirin and beta jeremiah. -Cardiology, Dr. Alves 2. Hypertension. lisinopril, metoprolol. 3. DVT prophylaxis with Lovenox. 4. GI prophylaxis with famotidine Subjective Date patient seen: Feb 24, 2019 Time patient seen: 07:27 ROS Limited/Unobtainable: No Allergies: Coded Allergies: No Known Allergies (Unverified , 04/06/12) Subjective Patient resting comfortably. CP mostly resolved Objective Last 24 Hour Vital Signs Date Time Temp Pulse Resp B/P (MAP) Pulse Ox O2 Delivery O2 Flow Rate FiO2 02/24/19 04:00 98.2 76 17 131/79 (96) 99 02/24/19 04:00 74 02/24/19 00:00 98.5 83 18 148/81 (103) 97 02/24/19 00:00 74 02/23/19 23:24 Room Air 02/23/19 22:40 97.9 85 18 140/82 98 Room Air 02/23/19 22:40 97.9 85 18 140/82 98 Room Air 02/23/19 19:06 98.6 71 19 149/77 99 Room Air 02/23/19 17:15 94 17 Room Air 02/23/19 17:15 98.4 80 17 158/88 100 Room Air 02/23/19 17:06 98.4 94 17 158/88 (111) 100 Room Air Laboratory Tests 02/23/19 18:29: White Blood Count 9.5, Red Blood Count 4.79, Hemoglobin 14.2, Hematocrit 41.0, Mean Corpuscular Volume 86, Mean Corpuscular Hemoglobin 29.7, Mean Corpuscular Hemoglobin Concent 34.7, Red Cell Distribution Width 10.6L, Platelet Count 275, Mean Platelet Volume 6.8, Neutrophils (%) (Auto) 55.6, Lymphocytes (%) (Auto) 33.4, Monocytes (%) (Auto) 7.4, Eosinophils (%) (Auto) 1.5, Basophils (%) (Auto ) 2.0 02/23/19 19:19: Sodium Level 139, Potassium Level 4.2, Chloride Level 104, Carbon Dioxide Level 24, Anion Gap 11, Blood Urea Nitrogen 10, Creatinine 0.6, Estimat Glomerular Filtration Rate > 60, Glucose Level 99, Calcium Level 9.4, Total Bilirubin 0.4, Aspartate Amino Transf (AST/SGOT) 17, Alanine Aminotransferase (ALT/SGPT) 11L, Alkaline Phosphatase 83, Troponin I 0.077H, Total Protein 7.9, Albumin 3.5, Globulin 4.4, Albumin/Globulin Ratio 0.8L 02/23/19 22:02: Troponin I 0.086H 02/24/19 06:20: White Blood Count [Pending], Red Blood Count [Pending], Hemoglobin [Pending], Hematocrit [Pending], Mean Corpuscular Volume [Pending], Mean Corpuscular Hemoglobin [Pending], Mean Corpuscular Hemoglobin Concent [Pending], Red Cell Distribution Width [Pending], Platelet Count [Pending], Mean Platelet Volume [ Pending], Neutrophils (%) (Auto) [Pending], Lymphocytes (%) (Auto) [Pending], Monocytes (%) (Auto) [Pending], Eosinophils (%) (Auto) [Pending], Basophils (%) (Auto) [Pending], Sodium Level [Pending], Potassium Level [Pending], Chloride Level [Pending], Carbon Dioxide Level [Pending], Blood Urea Nitrogen [Pending], Creatinine [Pending], Estimat Glomerular Filtration Rate [Pending], Glucose Level [Pending], Calcium Level [Pending], Troponin I [Pending] Height (Feet): 5 Height (Inches): 4.00 Weight (Pounds): 205 General Appearance: no apparent distress, alert EENT: normal ENT inspection Neck: normal alignment, supple Cardiovascular: normal rate, regular rhythm Respiratory/Chest: lungs clear, normal breath sounds Abdomen: non tender, soft Edema: no edema noted Arm (L), no edema noted Arm (R), no edema noted Leg (L), no edema noted Leg (R), no edema noted Pedal (L), no edema noted Pedal (R), no edema noted Generalized Usman Mosley MD Feb 24, 2019 07:29
[2019-02-24 07:30] LABS: ANION GAP 9 mmol/L (5-15); BLOOD UREA NITROGEN 9 mg/dL (7-18); CALCIUM 9.3 MG/DL (8.5-10.1); CARBON DIOXIDE 28 MMOL/L (21-32); CHLORIDE 102 MMOL/L (98-107); CREATININE 0.6 MG/DL (0.55-1.30); POTASSIUM 4.1 MMOL/L (3.5-5.1); SODIUM 139 MMOL/L (136-145)
[2019-02-24 07:36] LABS: BASOPHILS % (AUTO) 1.2 % (0.0-2.0); HEMATOCRIT 41.3 % (37.0-47.0); HEMOGLOBIN 13.8 G/DL (12.0-16.0); LYMPHOCYTES % (AUTO) 41.4 % (20.0-45.0); MEAN CORPUSCULAR VOLUME 88 FL (80-99); MONOCYTES % (AUTO) 8.6 % (1.0-10.0); NEUTROPHILS % (AUTO) 46.8 % (45.0-75.0); PLATELET COUNT 316 K/UL (150-450); RED BLOOD COUNT 4.67 M/UL (4.20-5.40); RED CELL DISTRIBUTION WIDTH 11.8 % (11.6-14.8); WHITE BLOOD COUNT 7.4 K/UL (4.8-10.8)
[2019-02-24 08:00] VITALS: BP 135/71
[2019-02-24] MEDS: Metoprolol Tartrate 12.5mg TAB ORAL SCH ×2 (08:39→20:42)
[2019-02-24] MEDS: Lisinopril 20mg tab ORAL SCH (08:39)
[2019-02-24] MEDS: Aspirin Baby 81mg ORAL SCH (08:39)
[2019-02-24] MEDS: Cosopt Opth Soln 10 mL Btl BOTH EYES SCH ×2 (08:40→17:03)
[2019-02-24] MEDS: Simethicone 80mg tab ORAL PRN ×2 (09:22→18:49)
[2019-02-24 09:50] LABS: CREATINE KINASE 57 U/L (26-308)
--- NOTE | 2019-02-24 10:51 | Cardiac Electrophysiology PN ---
Subjective Subjective Cardiology consult dictated [id number] Objective Last 24 Hour Vital Signs Date Time Temp Pulse Resp B/P (MAP) Pulse Ox O2 Delivery O2 Flow Rate FiO2 02/24/19 09:00 Room Air 02/24/19 08:39 72 135/71 02/24/19 08:39 135/71 02/24/19 08:00 98.4 72 18 135/71 (92) 97 02/24/19 08:00 68 02/24/19 04:00 98.2 76 17 131/79 (96) 99 02/24/19 04:00 74 02/24/19 00:00 98.5 83 18 148/81 (103) 97 02/24/19 00:00 74 02/23/19 23:24 Room Air 02/23/19 22:40 97.9 85 18 140/82 98 Room Air 02/23/19 22:40 97.9 85 18 140/82 98 Room Air 02/23/19 19:06 98.6 71 19 149/77 99 Room Air 02/23/19 17:15 94 17 Room Air 02/23/19 17:15 98.4 80 17 158/88 100 Room Air 02/23/19 17:06 98.4 94 17 158/88 (111) 100 Room Air Laboratory Tests Test 02/23/19 18:29 02/23/19 19:19 02/23/19 22:02 02/24/19 06:20 White Blood Count 9.5 K/UL (4.8-10.8) 7.4 K/UL (4.8-10.8) Red Blood Count 4.79 M/UL (4.20-5.40) 4.67 M/UL (4.20-5.40) Hemoglobin 14.2 G/DL (12.0-16.0) 13.8 G/DL (12.0-16.0) Hematocrit 41.0 % (37.0-47.0) 41.3 % (37.0-47.0) Mean Corpuscular Volume 86 FL (80-99) 88 FL (80-99) Mean Corpuscular Hemoglobin 29.7 PG (27.0-31.0) 29.4 PG (27.0-31.0) Mean Corpuscular Hemoglobin Concent 34.7 G/DL (32.0-36.0) 33.3 G/DL (32.0-36.0) Red Cell Distribution Width 10.6 % (11.6-14.8) L 11.8 % (11.6-14.8) Platelet Count 275 K/UL (150-450) 316 K/UL (150-450) Mean Platelet Volume 6.8 FL (6.5-10.1) 6.8 FL (6.5-10.1) Neutrophils (%) (Auto) 55.6 % (45.0-75.0) 46.8 % (45.0-75.0) Lymphocytes (%) (Auto) 33.4 % (20.0-45.0) 41.4 % (20.0-45.0) Monocytes (%) (Auto) 7.4 % (1.0-10.0) 8.6 % (1.0-10.0) Eosinophils (%) (Auto) 1.5 % (0.0-3.0) 2.0 % (0.0-3.0) Basophils (%) (Auto) 2.0 % (0.0-2.0) 1.2 % (0.0-2.0) Sodium Level 139 MMOL/L (136-145) 139 MMOL/L (136-145) Potassium Level 4.2 MMOL/L (3.5-5.1) 4.1 MMOL/L (3.5-5.1) Chloride Level 104 MMOL/L (98-107) 102 MMOL/L (98-107) Carbon Dioxide Level 24 MMOL/L (21-32) 28 MMOL/L (21-32) Anion Gap 11 mmol/L (5-15) 9 mmol/L (5-15) Blood Urea Nitrogen 10 mg/dL (7-18) 9 mg/dL (7-18) Creatinine 0.6 MG/DL (0.55-1.30) 0.6 MG/DL (0.55-1.30) Estimat Glomerular Filtration Rate > 60 mL/min (>60) > 60 mL/min (>60) Glucose Level 99 MG/DL (74-106) 97 MG/DL (74-106) Calcium Level 9.4 MG/DL (8.5-10.1) 9.3 MG/DL (8.5-10.1) Total Bilirubin 0.4 MG/DL (0.2-1.0) Aspartate Amino Transf (AST/SGOT) 17 U/L (15-37) Alanine Aminotransferase (ALT/SGPT) 11 U/L (12-78) L Alkaline Phosphatase 83 U/L (46-116) Troponin I 0.077 ng/mL (0.000-0.056) 0.086 ng/mL (0.000-0.056) 0.029 ng/mL (0.000-0.056) Total Protein 7.9 G/DL (6.4-8.2) Albumin 3.5 G/DL (3.4-5.0) Globulin 4.4 g/dL Albumin/Globulin Ratio 0.8 (1.0-2.7) L Total Creatine Kinase 57 U/L (26-308) Rehan Alves MD Feb 24, 2019 10:51
[2019-02-24] MEDS ORDERED: Lexiscan 0.4mg/5ml syringe IV PRN (10:54)
[2019-02-24 12:00] VITALS: BP 132/79
--- NOTE | 2019-02-24 13:36 | Diagnostic Imaging Report ---
Indication: Chest pain Technique: One view of the chest Comparison: 09/20/2015 Findings: Lungs and pleural spaces are clear. The heart size is normal. The upper mediastinum is unremarkable Impression: Negative
[2019-02-24 16:00] VITALS: BP 117/74
--- NOTE | 2019-02-24 16:15 | Consultation ---
DATE OF CONSULTATION: 02/24/2019 CARDIOLOGY CONSULTATION CONSULTING PHYSICIAN: Rehan Alves M.D. REFERRING PHYSICIAN: Usman Mosley M.D. REASON FOR CONSULTATION: Elevated troponin, chest pain, and palpitation. HISTORY OF PRESENT ILLNESS: The patient is a 68-year-old lady with history of hypertension and glaucoma with left eye blindness, was brought to the emergency room for two days of palpitations. The patient denies any chest pain or shortness of breath. This has been going on for two days. The patient was admitted and a Cardiology consultation was obtained for further evaluation. The patient's initial EKG showed sinus rhythm with left ventricular hypertrophy and ST-T wave abnormalities. Her first troponin was also elevated at 0.077 and 0.086, but subsequent troponin today is negative. REVIEW OF SYSTEMS: Negative other than what was mentioned in history of present illness. PAST MEDICAL HISTORY: As mentioned above. FAMILY HISTORY: Noncontributory. SOCIAL HISTORY: She lives at home. Does not smoke or drink alcohol. PHYSICAL EXAMINATION: VITAL SIGNS: Show blood pressure of 135/71, pulse 60, respirations 18, and she is afebrile. HEAD AND NECK: Showed no JVD or carotid bruits. LUNGS: Clear. CARDIOVASCULAR: Shows regular S1 and S2 with no gallop or murmur. ABDOMEN: Soft. EXTREMITIES: No pitting edema. LABORATORY AND DIAGNOSTIC DATA: EKG shows sinus rhythm with LVH. Labs show white count of 7.4, hemoglobin 13.8, hematocrit 41.3, and platelets . Sodium is 139, potassium 4.1, BUN 9, and creatinine 0.6. Troponins were 0.077, 0.086 and 0.029. ASSESSMENT AND PLAN: 1. Hypertension, elevated troponin and chest pain. EKG does not show any ST elevation. She currently does not have any chest pain. Continue aspirin and Lopressor 12.5 mg twice a day, and add Lipitor to her medical regimen. Watch the patient on telemetry. It is possible that she might have SVT or atrial fibrillation with rapid ventricular response causing troponin elevation. We will schedule the patient for nuclear stress test for further evaluation. 2. Palpitation, on Lopressor 12.5 mg b.i.d. Watch the patient on telemetry for documentation of any SVT or atrial flutter or atrial fibrillation. 3. Hypertension. Lopressor 12.5 mg twice a day and lisinopril 20 mg daily. Thank you very much, Dr. Waddell, for allowing me to participate in the care of this patient. Please do not hesitate to contact me for any questions regarding my evaluation. Rehan Alves M.D. DR: LILA JOB#: [id number] CC:
[2019-02-24 20:00] VITALS: BP 133/69
[2019-02-24] MEDS: Enoxaparin 40mg Inj SUBQ SCH (20:38)
[2019-02-24] MEDS: Atorvastatin 20mg tab ORAL SCH (20:40)
[2019-02-24] MEDS: Latanoprost 0.005% Opth 2.5ml Soln BOTH EYES SCH (21:20)
[2019-02-25] VITALS: BP 134/69
[2019-02-25 04:00] VITALS: BP 132/81
[2019-02-25 07:01] LABS: ANION GAP 7 mmol/L (5-15); BLOOD UREA NITROGEN 11 mg/dL (7-18); CALCIUM 9.4 MG/DL (8.5-10.1); CARBON DIOXIDE 28 MMOL/L (21-32); CHLORIDE 104 MMOL/L (98-107); CREATININE 0.6 MG/DL (0.55-1.30); POTASSIUM 3.8 MMOL/L (3.5-5.1); SODIUM 139 MMOL/L (136-145)
[2019-02-25 08:00] VITALS: BP 130/79
--- NOTE | 2019-02-25 08:09 | Nephrology Progress Note ---
Assessment/Plan Assessment/Plan: A/P 1. ACS/Chest pain/palpitations. chest pain has resolved. -aspirin and beta jeremiah/MEGHAN-I -Cardiology, Dr. Alves - stress test today. DC once cleared by cardiology 2. Hypertension. lisinopril, metoprolol. - stable 3. DVT prophylaxis with Lovenox. 4. GI prophylaxis with famotidine Subjective Date patient seen: Feb 25, 2019 Time patient seen: 08:07 ROS Limited/Unobtainable: No Allergies: Coded Allergies: No Known Allergies (Unverified , 04/06/12) Subjective Patient resting comfortably. CP gone and no arrthymias noted since admission Objective Last 24 Hour Vital Signs Date Time Temp Pulse Resp B/P (MAP) Pulse Ox O2 Delivery O2 Flow Rate FiO2 02/25/19 04:55 69 02/25/19 04:00 98.0 77 20 132/81 (98) 98 02/25/19 00:00 98.0 67 20 134/69 (90) 99 02/25/19 00:00 63 02/24/19 21:00 Room Air 02/24/19 20:42 69 133/69 02/24/19 20:00 63 02/24/19 20:00 98.4 69 20 133/69 (90) 97 02/24/19 16:00 59 02/24/19 16:00 98.2 68 18 117/74 (88) 95 02/24/19 12:00 98.8 62 18 132/79 (96) 98 02/24/19 12:00 62 02/24/19 09:00 Room Air 02/24/19 08:39 72 135/71 02/24/19 08:39 135/71 Laboratory Tests 02/25/19 06:14: Sodium Level 139, Potassium Level 3.8, Chloride Level 104, Carbon Dioxide Level 28, Anion Gap 7, Blood Urea Nitrogen 11, Creatinine 0.6, Estimat Glomerular Filtration Rate > 60, Glucose Level 99, Calcium Level 9.4 Height (Feet): 5 Height (Inches): 4.00 Weight (Pounds): 204 General Appearance: no apparent distress, alert EENT: normal ENT inspection Neck: normal alignment, supple Cardiovascular: normal rate, regular rhythm Respiratory/Chest: lungs clear, normal breath sounds Abdomen: non tender, soft Edema: no edema noted Arm (L), no edema noted Arm (R), no edema noted Leg (L), no edema noted Leg (R), no edema noted Pedal (L), no edema noted Pedal (R), no edema noted Generalized Usman Mosley MD Feb 25, 2019 08:09
[2019-02-25] MEDS: Aspirin Baby 81mg ORAL SCH (08:47)
[2019-02-25] MEDS: Lisinopril 20mg tab ORAL SCH (08:48)
[2019-02-25] MEDS: Cosopt Opth Soln 10 mL Btl BOTH EYES SCH ×2 (08:51→17:45)
[2019-02-25] MEDS: Metoprolol Tartrate 12.5mg TAB ORAL SCH ×2 (09:00→21:07)
[2019-02-25 12:00] VITALS: BP 138/87
--- NOTE | 2019-02-25 15:06 | Cardiac Electrophysiology PN ---
Assessment/Plan Assessment/Plan 1. Hypertension, elevated troponin and chest pain. EKG does not show any ST elevation. She currently does not have any chest pain. Continue aspirin and Lopressor 12.5 mg twice a day, and Lipitor It is possible that she might have SVT or atrial fibrillation with rapid ventricular response causing troponin elevation. Awaiting nuclear stress test report. 2. Palpitation, on Lopressor 12.5 mg b.i.d. Watch the patient on telemetry for documentation of any SVT or atrial flutter or atrial fibrillation. 3. Hypertension. Lopressor 12.5 mg twice a day and lisinopril 20 mg daily. RELL RN and Dr Velasquez who did the stress test Subjective Subjective Just underwent Lexiscan Cardiolite stress test by Dr. Velasquez Objective Last 24 Hour Vital Signs Date Time Temp Pulse Resp B/P (MAP) Pulse Ox O2 Delivery O2 Flow Rate FiO2 02/25/19 12:00 56 02/25/19 12:00 97.8 62 14 138/87 (104) 98 02/25/19 09:00 67 130/79 02/25/19 09:00 Room Air 02/25/19 08:48 130/79 02/25/19 08:00 97.5 67 14 130/79 (96) 98 02/25/19 08:00 64 02/25/19 04:55 69 02/25/19 04:00 98.0 77 20 132/81 (98) 98 02/25/19 00:00 98.0 67 20 134/69 (90) 99 02/25/19 00:00 63 02/24/19 21:00 Room Air 02/24/19 20:42 69 133/69 02/24/19 20:00 63 02/24/19 20:00 98.4 69 20 133/69 (90) 97 02/24/19 16:00 59 02/24/19 16:00 98.2 68 18 117/74 (88) 95 Laboratory Tests Test 02/25/19 06:14 Sodium Level 139 MMOL/L (136-145) Potassium Level 3.8 MMOL/L (3.5-5.1) Chloride Level 104 MMOL/L (98-107) Carbon Dioxide Level 28 MMOL/L (21-32) Anion Gap 7 mmol/L (5-15) Blood Urea Nitrogen 11 mg/dL (7-18) Creatinine 0.6 MG/DL (0.55-1.30) Estimat Glomerular Filtration Rate > 60 mL/min (>60) Glucose Level 99 MG/DL (74-106) Calcium Level 9.4 MG/DL (8.5-10.1) Objective HEAD AND NECK: No JVD or carotid bruits. LUNGS: Clear. CARDIOVASCULAR: Regular S1 and S2 with no gallop or murmur. ABDOMEN: Soft. EXTREMITIES: No pitting edema. Rehan Alves MD Feb 25, 2019 15:06
[2019-02-25 16:00] VITALS: BP 132/75
--- NOTE | 2019-02-25 16:51 | Diagnostic Imaging Report ---
Indications: Chest pain Technique: Single day single isotope protocol utilized. Initially, resting images obtained using IV administration 10.7 millicuries 99M technetium Myoview. Subsequently, patient underwent lexiscan stress testing. See cardiology report for details. During Lexiscan infusion, IV administration 31 mCi 99 M technetium Myoview. SPECT and planar images obtained. SPECT images gated to 8 phases of the cardiac cycle were also obtained, and reformatted into cine images for evaluation of ejection fraction. Comparison: none Findings: Per cardiology report, patient experienced no chest pain during infusion. Per cardiology report, resting EKG demonstrates normal sinus rhythm with PACs. No ST changes noted during infusion. Imaging demonstrates normal poststress perfusion, no fixed nor reversible poststress perfusion defects. Normal cardiac chamber size. Calculated post stress ejection fraction 74%. No focal wall motion abnormality Impression: Nonischemic clinical response to pharmacologic stress, per cardiology report Nonischemic electrocardiographic response to pharmacologic stress, per cardiology report No imaging findings to suggest ischemia, at level of stress achieved. Calculated post stress ejection fraction greater than 70%
[2019-02-25] MEDS: Simethicone 80mg tab ORAL PRN (17:45)
--- NOTE | 2019-02-25 19:43 | Cardiology Report ---
APPROVED REPORT EXAM: Two-dimensional and M-mode echocardiogram with Doppler and color Doppler. INDICATION Chest Pain M-Mode DIMENSIONS IVSd1.1 (0.7-1.1cm)Left Atrium (MM)3.5 (1.6-4.0cm) LVDd3.8 (3.5-5.6cm)Aortic Root2.6 (2.0-3.7cm) PWd1.1 (0.7-1.1cm)Aortic Cusp Exc.1.8 (1.5-2.0cm) LVDs2.7 (2.5-4.0cm) PWs1.7 cm Technically difficutl study Normal left ventricular chamber size, systolic function and wall motion to the extent visualized . Left ventricular ejection fraction estimated to be 60-65 %. No left ventricular hypertrophy. No evidence of pericardial effusion. All other cardiac chamber sizes are within normal limits. Focal aortic valve sclerosis with adequate cusp excursion. Thickened mitral valve leaflets with normal excursion. Mitral annulus and aortic root calcification. Pulmonic valve not well visualized. Normal tricuspid valve structure. IVC at normal size with physiologic collapse. A color flow and spectral Doppler study was performed and revealed: Mild aortic regurgitation Peak gradient 13 Meadn gradiedn 7 mmhg across the aortic load out supervisor Trace mitral regurgitation. Mitral diastolic velocities suggest reduced left ventricular relaxation c/w mild LV diastolic dysfunction (Grade I). Trace tricuspid regurgitation. Tricuspid systolic velocities suggests peak right ventricular systolic pressure of 13 mmHg. No pulmonic regurgitation present.
[2019-02-25 20:34] VITALS: BP 127/72
[2019-02-25] MEDS: Latanoprost 0.005% Opth 2.5ml Soln BOTH EYES SCH (21:06)
[2019-02-25] MEDS: Atorvastatin 20mg tab ORAL SCH (21:07)
[2019-02-25] MEDS: Enoxaparin 40mg Inj SUBQ SCH (21:08)
[2019-02-26] VITALS: BP_SYST 129; BP_DIAS 7; BP_DIAS 70
[2019-02-26 04:00] VITALS: BP 129/70
[2019-02-26 08:00] VITALS: BP 113/84
[2019-02-26] MEDS: Aspirin Baby 81mg ORAL SCH (08:50)
[2019-02-26] MEDS: Cosopt Opth Soln 10 mL Btl BOTH EYES SCH (08:50)
[2019-02-26] MEDS: Lisinopril 20mg tab ORAL SCH (08:50)
[2019-02-26] MEDS: Metoprolol Tartrate 12.5mg TAB ORAL SCH (08:50)
--- NOTE | 2019-02-26 08:51 | Nephrology Progress Note ---
Assessment/Plan Assessment/Plan: A/P 1. ACS/Chest pain/palpitations. chest pain has resolved. -aspirin and beta jeremiah/MEGHAN-I -Cardiology, Dr. Alves -DC today if cleared by cardiology. stress test results pending 2. Hypertension. lisinopril, metoprolol. - stable 3. DVT prophylaxis with Lovenox. 4. GI prophylaxis with famotidine Subjective Date patient seen: Feb 26, 2019 Time patient seen: 08:44 Allergies: Coded Allergies: No Known Allergies (Unverified , 04/06/12) Subjective Patient resting comfortably. CP gone and no arrthymias noted since admission Objective Last 24 Hour Vital Signs Date Time Temp Pulse Resp B/P (MAP) Pulse Ox O2 Delivery O2 Flow Rate FiO2 02/26/19 04:00 97.9 59 20 129/70 (89) 96 02/26/19 04:00 58 02/26/19 00:00 97.7 61 18 129/70 (89) 97 02/25/19 23:28 61 02/25/19 21:07 64 127/72 02/25/19 21:00 Room Air 02/25/19 20:34 98.1 64 16 127/72 (90) 97 02/25/19 20:00 65 02/25/19 16:00 96.9 84 14 132/75 (94) 99 02/25/19 16:00 82 02/25/19 12:00 56 02/25/19 12:00 97.8 62 14 138/87 (104) 98 02/25/19 09:00 67 130/79 02/25/19 09:00 Room Air 02/25/19 08:48 130/79 Intake and Output 02/25/19 02/26/19 19:00 07:00 Intake Total 240 ml Balance 240 ml Intake Oral 240 ml # Voids 2 Height (Feet): 5 Height (Inches): 4.00 Weight (Pounds): 204 General Appearance: no apparent distress, alert EENT: normal ENT inspection Neck: normal alignment, supple Cardiovascular: normal rate, regular rhythm Respiratory/Chest: lungs clear, normal breath sounds Abdomen: non tender, soft Edema: no edema noted Arm (L), no edema noted Arm (R), no edema noted Leg (L), no edema noted Leg (R), no edema noted Pedal (L), no edema noted Pedal (R), no edema noted Generalized Usman Mosley MD Feb 26, 2019 08:51
--- NOTE | 2019-02-26 08:53 | Discharge Instructions ---
Discharge Instructions Discharge Instructions Services at Discharge: day care Resume Normal Activity?: Yes Activity: light activity Follow Up Orders Follow up PCP 1 week Rx given for Lopressor and Lisinopril For Congestive Heart Failure Reminder Report to your physician any weight gain of 5 pounds or more in one week. Usman Mosley MD Feb 26, 2019 08:53
--- NOTE | 2019-02-26 11:10 | Cardiac Electrophysiology PN ---
Assessment/Plan Assessment/Plan 1. Elevated troponin and chest pain. EKG does not show any ST elevation. She currently does not have any chest pain. Continue aspirin and Lopressor 12.5 mg twice a day, and Lipitor It is possible that she might have SVT or atrial fibrillation with rapid ventricular response causing troponin elevation. Nuclear stress test no ischemia 2. Palpitation, on Lopressor 12.5 mg b.i.d. Watch the patient on telemetry for documentation of any SVT or atrial flutter or atrial fibrillation. 3. Hypertension. Lopressor 12.5 mg twice a day and lisinopril 20 mg daily. RELL RN OK to DC Subjective Subjective Had Lexiscan Cardiolite stress test by Dr. Velasquez yesterday Objective Last 24 Hour Vital Signs Date Time Temp Pulse Resp B/P (MAP) Pulse Ox O2 Delivery O2 Flow Rate FiO2 02/26/19 08:50 67 113/84 02/26/19 08:50 113/84 02/26/19 04:00 97.9 59 20 129/70 (89) 96 02/26/19 04:00 58 02/26/19 00:00 97.7 61 18 129/70 (89) 97 02/25/19 23:28 61 02/25/19 21:07 64 127/72 02/25/19 21:00 Room Air 02/25/19 20:34 98.1 64 16 127/72 (90) 97 02/25/19 20:00 65 02/25/19 16:00 96.9 84 14 132/75 (94) 99 02/25/19 16:00 82 02/25/19 12:00 56 02/25/19 12:00 97.8 62 14 138/87 (104) 98 Intake and Output 02/25/19 02/26/19 19:00 07:00 Intake Total 240 ml Balance 240 ml Intake Oral 240 ml # Voids 2 Objective HEAD AND NECK: No JVD or carotid bruits. LUNGS: Clear. CARDIOVASCULAR: Regular S1 and S2 with no gallop or murmur. ABDOMEN: Soft. EXTREMITIES: No pitting edema. Rehan Alves MD Feb 26, 2019 11:10
[2019-02-26 12:00] VITALS: BP 117/74
--- NOTE | 2019-02-27 08:23 | Discharge Summary ---
Discharge Summary Discharge Summary _ DATE OF ADMISSION: 02/23/2019 DATE OF DISCHARGE: 02/26/2019 DISCHARGED BY: Dr.De Waddell REASON FOR ADMISSION: 68 years old female with past medical history of hypertension and glaucoma , presented to emergency department complaining of 2 days of palpitations. Upon evaluation in emergency room blood pressure was slightly on the higher side 158/88 , otherwise vital signs were stable. Laboratory work-up was unremarkable. Glucose 99. Troponin- 0.077 . EKG revealed sinus rhythm , no acute ischemic changes . Chest x-ray revealed no acute cardiopulmonary pathology. Patient admitted for palpitations and elevated troponin. CONSULTANTS: pattern and chain maker Dr. Gallagher [facility]: Patient admitted to telemetry floor. Patient started on antiplatelet therapy with aspirin and beta-blockade. Serial troponin were monitored ; second troponin slightly trended up to 0.086 , and the last troponin was negative. Telemetry showed no acute changes . No evidence of SVT or atrial flutter. Patient was on Lopressor. Echocardiogram revealed preserved ejection fraction 60 to 65%. Left ventricular hypertrophy. No evidence of pericardial effusion. No evidence of wall motion abnormality. Right ventricular systolic pressure of 14. Blood pressure was controlled with beta-jeremiah and MEGHAN inhibitor. Patient also undergone myocardial perfusion scan test ,which was negative with calculated poststress ejection fraction greater than 70%. Pain manageemtn was addressed as needed. No further palpitations, no chest pain. Eyedrops for glaucoma continued. DVT and GI prophylaxis provided. Patient clinically stabilized and was ready for discharge FINAL DIAGNOSES: Elevated troponin Chest pain -resolved Palpitations-resolved Possible acute coronary syndrome Hypertension DISCHARGE MEDICATIONS: See Medication Reconciliation list. DISCHARGE INSTRUCTIONS: Patient was discharged home. Follow-up with a primary care provider in 1 week. I have been assigned to dictate discharge summary for this account. I was not involved in the patient's management. Izzy Aguilar NP Feb 27, 2019 08:23
--- NOTE | 2019-02-27 15:39 | Cardiology Report ---
APPROVED REPORT EKG Measurement Heart [id number] ID [id number] Normal sinus rhythm Moderate voltage criteria for LVH, may be normal variant Borderline ECG
== END 2019-02-26 13:20 | disposition home or self-care (01) | DRG 309 ==
LOC: EMR 20:45 → EDBEDREQ 21:54 → 2E 22:08
DX: R00.2 Palpitations (principal); I24.9 Acute ischemic heart disease, unspecified; I10 Essential (primary) hypertension; H40.9 Unspecified glaucoma; R07.9 Chest pain, unspecified
CPT/HCPCS: 36415; 71045; 78452; 80048; 80053; 82550; 84484; 85025; 93005; 93017; 93306; 99285; J2785